=== PATIENT | female | born 1955 | race Two or more races ===

== ENCOUNTER 2020-08-02 18:19 | Emergency (ER) | payer SELFPAY ==
[~2020-08-02] VITALS: Ht 160 cm; Wt 86.2 kg
[2020-08-02 19:37] LABS: Basophils # (auto) 0.1 10 ^3/uL (0-0.2); Basophils % (auto) 1.3 % (0.0-2.0); Eosinophils # (auto) 0.2 10 ^3/uL (0-0.8); Eosinophils % (auto) 2.5 % (0.0-7.0); Hematocrit 39.7 % (36.0-46.0); Hemoglobin 13.1 g/dL (12.2-16.2); Mean Corpuscular Hemoglobin 29.2 pg (28.0-32.0); Mean Corpuscular Volume 88.3 fL (80.0-100.0); Monocytes # (auto) 0.5 10 ^3/uL (0-1.3); Monocytes % (auto) 6.5 % (0.0-12.0); Neutrophils # (auto) 5.1 10 ^3/uL (1.6-8.6); Neutrophils % (auto) 64.7 % (37.0-80.0); Platelet Count (auto) 226 10^3/uL (140-450); Red Cell Distribution Width 15.7 % (11.8-14.3); White Blood Cell 7.9 10^3/uL (4.4-10.8)
[2020-08-02 20:11] LABS: Alanine Aminotransferase 29 U/L (13-56); Albumin 3.2 g/dL (3.4-5.0); Anion Gap 9 (5-15); Aspartate Aminotransferase 11 U/L (15-37); Blood Urea Nitrogen 20 mg/dL (7-18); Calcium 9.1 mg/dL (8.5-10.1); Carbon Dioxide 25 mmol/L (21-32); Chloride 97 mmol/L (98-107); GFR African American 81 mL/min; GFR Non-African American 67 mL/min; Sodium 131 mmol/L (136-145)
[2020-08-02 20:14] LABS: Alkaline Phosphatase 128 U/L (45-117); Bilirubin, Total 0.4 mg/dL (0.2-1.0); Total Protein 7.1 g/dL (6.4-8.2)
[2020-08-02 20:20] LABS: Glucose 486 mg/dL (74-106)
[2020-08-02] MEDS ORDERED: InsuLIN REG 1unit/0.01ml Soln (100units/ml) IV ONE (21:30)
[2020-08-02] MEDS ORDERED: SODIUM CHLORIDE 0.9% 1,000 ML IV ONE (21:30)
[2020-08-02] MEDS ORDERED: KETOROLAC TROMETH 30 MG/ML 1ML VIAL IV ONE (23:00)
[2020-08-02] MEDS ORDERED: VANCOMYCIN 1GM/250ML 250 ML IV ONE (23:15)
[2020-08-03 00:26] LABS: BUN/Creatinine Ratio 25.4; Calcium 8.7 mg/dL (8.5-10.1); Potassium 3.5 mmol/L (3.5-5.1)
[2020-08-03 00:56] VITALS: BP 141/66
== END 2020-08-03 00:47 | disposition home or self-care (01) ==
LOC: ER 18:19
DX: L03.116 Cellulitis of left lower limb (principal); I10 Essential (primary) hypertension; E11.9 Type 2 diabetes mellitus without complications; E78.5 Hyperlipidemia, unspecified
CPT/HCPCS: 36415; 73630; 80048; 80053; 82962; 83605; 83735; 83880; 84550; 85025; 85652; 86141; 87040; 93971; 96361; 96365; 96375; 99285; J1885; J3370

== ENCOUNTER → 2023-01-01 | Outpatient (CLI) | payer MEDICARE, MEDICAID ==
[2023-01-01 11:04] LABS: Calcium 9.2 mg/dL (8.5-10.1); Potassium 4.6 mmol/L (3.5-5.1)
[2023-01-01 11:08] LABS: Bilirubin, Total 0.7 mg/dL (0.2-1.0); Total Protein 7.3 g/dL (6.4-8.2)
[2023-01-01 11:10] LABS: Free T4 (Free Thyroxine) 0.92 ng/dL (0.89-1.76); T3 Total 0.75 ng/mL (0.60-1.81)
[2023-01-01 11:11] LABS: Free T3 2.41 pg/mL (2.3-4.2)
== END | disposition home or self-care (01) ==
LOC: LAB 09:32
PROVIDERS: ATTEND Family Medicine
DX: Z12.11 Encounter for screening for malignant neoplasm of colon (principal); I10 Essential (primary) hypertension; E78.2 Mixed hyperlipidemia; E11.65 Type 2 diabetes mellitus with hyperglycemia
CPT/HCPCS: 36415; 80053; 80061; 84439; 84443; 84480; 84481

== ENCOUNTER 2023-01-04 12:08 | Emergency (ER) | payer OTHER, MEDICAID ==
[~2023-01-04] VITALS: Ht 160 cm; Wt 97.1 kg
[2023-01-04] MEDS ORDERED: KETOROLAC TROMETH 60MG/2ML VIAL IM ONE (14:00)
[2023-01-04] MEDS ORDERED: cloNIDine HCL 0.1 MG TAB PO ONE (14:00)
[2023-01-04 15:06] VITALS: BP 133/75
[2023-01-04] MEDS ORDERED: HYDROcodone-ACET 10/325MG TAB PO ONE (15:15)
[2023-01-04] MEDS ORDERED: HYDR1TAB97 PO (15:56)
== END 2023-01-04 16:04 | disposition home or self-care (01) ==
LOC: ER 12:08
DX: S42.032A Displaced fracture of lateral end of left clavicle, initial encounter for closed fracture (principal); E11.9 Type 2 diabetes mellitus without complications; I10 Essential (primary) hypertension; E78.5 Hyperlipidemia, unspecified; W18.2XXA Fall in (into) shower or empty bathtub, initial encounter; Y93.89 Activity, other specified; Y92.89 Other specified places as the place of occurrence of the external cause; Y99.8 Other external cause status
CPT/HCPCS: 73000; 96372; 99283; J1885

== ENCOUNTER → 2023-06-14 | Outpatient (CLI) | payer OTHER, MEDICAID ==
[~2023-06-14] MED LIST: HYDR1TAB97 PO
[2023-06-14 13:43] LABS: Basophils # (auto) 0.1 10 ^3/uL (0-0.2); Basophils % (auto) 0.8 % (0.0-2.0); Eosinophils # (auto) 0.1 10 ^3/uL (0-0.8); Eosinophils % (auto) 1.3 % (0.0-7.0); Hematocrit 44.2 % (36.0-46.0); Hemoglobin 14.5 g/dL (12.2-16.2); Lymphocytes # (auto) 2.1 10 ^3/uL (0.4-5.4); Lymphocytes % (auto) 23.2 % (10.0-50.0); Mean Corpuscular Hemoglobin 28.6 pg (28.0-32.0); Mean Corpuscular Hgb Conc. 32.8 g/dL (32.0-36.0); Mean Corpuscular Volume 87.3 fL (80.0-100.0); Monocytes # (auto) 0.4 10 ^3/uL (0-1.3); Monocytes % (auto) 4.6 % (0.0-12.0); Neutrophils # (auto) 6.4 10 ^3/uL (1.6-8.6); Neutrophils % (auto) 70.1 % (37.0-80.0); Red Blood Cells 5.06 10^6/uL (4.0-5.20); Red Cell Distribution Width 14.8 % (11.8-14.3); White Blood Cell 9.1 10^3/uL (4.4-10.8)
[2023-06-14 14:14] LABS: Alanine Aminotransferase 23 U/L (7-40); Albumin 4.4 g/dL (3.2-4.8); Alkaline Phosphatase 104 U/L (46-116); Anion Gap 5 (5-15); Aspartate Aminotransferase 12 U/L (13-40); BUN/Creatinine Ratio 9.3 (10.0-20.0); Bilirubin, Total 0.9 mg/dL (0.2-1.0); Blood Urea Nitrogen 9 mg/dL (9-23); Carbon Dioxide 29 mmol/L (20-30); Chloride 103 mmol/L (98-107); Cholesterol 138 mg/dL (< 200); Glucose 285 mg/dL (74-106); HDL Cholesterol 45 mg/dL (40-59); LDL Cholesterol 82 mg/dL (< 100); Potassium 4.7 mmol/L (3.5-5.1); Sodium 137 mmol/L (136-145); Total Protein 6.9 g/dL (5.7-8.2); Triglycerides 105 mg/dL (< 150)
== END | disposition home or self-care (01) ==
LOC: LAB 13:29
PROVIDERS: ATTEND Family Medicine
DX: E11.42 Type 2 diabetes mellitus with diabetic polyneuropathy (principal); E11.65 Type 2 diabetes mellitus with hyperglycemia; E11.319 Type 2 diabetes mellitus with unspecified diabetic retinopathy without macular edema; E78.2 Mixed hyperlipidemia; M79.2 Neuralgia and neuritis, unspecified
CPT/HCPCS: 36415; 80053; 80061; 83036; 85025

== ENCOUNTER → 2023-10-15 | Outpatient (CLI) | payer OTHER, MEDICAID | END | disposition home or self-care (01) | LOC: LAB 10:39 | PROVIDERS: ATTEND Family Medicine | DX: E11.65 Type 2 diabetes mellitus with hyperglycemia (principal) | CPT/HCPCS: 36415; 83036 ==

== ENCOUNTER → 2023-12-02 | Outpatient (CLI) | payer OTHER, MEDICAID ==
[2023-12-02 12:13] LABS: Anion Gap 3 (5-15); Carbon Dioxide 31 mmol/L (20-30); Chloride 107 mmol/L (98-107); Potassium 4.3 mmol/L (3.5-5.1); Sodium 141 mmol/L (136-145)
[2023-12-02 12:14] LABS: Calcium 9.9 mg/dL (8.5-10.1)
[2023-12-02 12:19] LABS: BUN/Creatinine Ratio 23.5 (10.0-20.0); Blood Urea Nitrogen 20 mg/dL (9-23)
[2023-12-02 13:14] LABS: Glucose 36 mg/dL (74-106)
== END | disposition home or self-care (01) ==
LOC: LAB 10:35
PROVIDERS: ATTEND Family Medicine
DX: E11.65 Type 2 diabetes mellitus with hyperglycemia (principal); I10 Essential (primary) hypertension; M79.2 Neuralgia and neuritis, unspecified; E06.3 Autoimmune thyroiditis
CPT/HCPCS: 36415; 80048; 83036

== ENCOUNTER → 2024-01-17 | Outpatient (CLI) | payer OTHER, MEDICAID | END | disposition home or self-care (01) | LOC: LAB 11:47 | PROVIDERS: ATTEND Family Medicine | DX: E06.3 Autoimmune thyroiditis (principal); E11.319 Type 2 diabetes mellitus with unspecified diabetic retinopathy without macular edema; F51.01 Primary insomnia; M79.2 Neuralgia and neuritis, unspecified | CPT/HCPCS: 36415; 82565; 82570 ==

== ENCOUNTER → 2024-02-24 | Outpatient (CLI) | payer OTHER, MEDICAID ==
[2024-02-24 12:10] LABS: Chloride 105 mmol/L (98-107); Potassium 5.1 mmol/L (3.5-5.1); Sodium 138 mmol/L (136-145)
[2024-02-24 12:11] LABS: Anion Gap 3 (5-15); Carbon Dioxide 30 mmol/L (20-30)
[2024-02-24 12:12] LABS: Blood Urea Nitrogen 17 mg/dL (9-23)
[2024-02-24 12:14] LABS: Creatinine, Urine 121.81 mg/dL (30.0-125.0)
[2024-02-24 12:16] LABS: BUN/Creatinine Ratio 16.8 (10.0-20.0); Glucose 211 mg/dL (74-106)
== END | disposition home or self-care (01) ==
LOC: LAB 10:55
PROVIDERS: ATTEND Family Medicine
DX: E11.9 Type 2 diabetes mellitus without complications (principal)
CPT/HCPCS: 36415; 80048; 82043; 82570

== ENCOUNTER → 2024-03-22 | Outpatient (CLI) | payer OTHER, MEDICAID ==
[2024-03-22 14:13] LABS: Anion Gap 4 (5-15); Carbon Dioxide 30 mmol/L (20-30); Chloride 105 mmol/L (98-107); Potassium 4.7 mmol/L (3.5-5.1); Sodium 139 mmol/L (136-145)
[2024-03-22 14:15] LABS: Calcium 9.6 mg/dL (8.7-10.4)
[2024-03-22 14:19] LABS: Glucose 221 mg/dL (74-106)
[2024-03-22 14:20] LABS: BUN/Creatinine Ratio 19.5 (10.0-20.0); Blood Urea Nitrogen 23 mg/dL (9-23); Creatinine, Urine 83.08 mg/dL (30.0-125.0)
== END | disposition home or self-care (01) ==
LOC: LAB 13:01
PROVIDERS: ATTEND Family Medicine
DX: E11.42 Type 2 diabetes mellitus with diabetic polyneuropathy (principal); E11.65 Type 2 diabetes mellitus with hyperglycemia
CPT/HCPCS: 36415; 80048; 82043; 82570; 83036

== ENCOUNTER → 2024-04-14 | Outpatient (CLI) | payer OTHER, MEDICAID ==
[~2024-04-14] VITALS: Ht 160 cm; Wt 90.7 kg
[~2024-04-14] MED LIST changes: +ADENOSINE 76 MG in GIVE UN-DILUTED 0 ML IV ONE
== END | disposition home or self-care (01) ==
LOC: XYW 09:20
PROVIDERS: ATTEND Student in an Organized Health Care Education/Training Program
DX: R94.31 Abnormal electrocardiogram [ECG] [EKG] (principal); I10 Essential (primary) hypertension; R07.9 Chest pain, unspecified; E11.65 Type 2 diabetes mellitus with hyperglycemia; E78.5 Hyperlipidemia, unspecified; Z79.4 Long term (current) use of insulin
CPT/HCPCS: 78452; 93017; A9500; J0153

== ENCOUNTER → 2024-07-03 | Outpatient (CLI) | payer OTHER, MEDICAID ==
[~2024-07-03] MED LIST changes: -ADENOSINE 76 MG in GIVE UN-DILUTED 0 ML IV ONE
== END | disposition home or self-care (01) ==
LOC: LAB 10:42
PROVIDERS: ATTEND Family Medicine
DX: E11.65 Type 2 diabetes mellitus with hyperglycemia (principal); E11.42 Type 2 diabetes mellitus with diabetic polyneuropathy
CPT/HCPCS: 36415; 83036

== ENCOUNTER → 2024-09-21 | Outpatient (CLI) | payer OTHER, MEDICAID, MEDICARE | END | disposition home or self-care (01) | LOC: LAB 12:00 | PROVIDERS: ATTEND Dermatology | DX: L72.0 Epidermal cyst (principal) ==

== ENCOUNTER → 2024-09-26 | Outpatient (CLI) | payer OTHER, MEDICAID ==
[2024-09-26 11:41] LABS: Potassium 4.2 mmol/L (3.5-5.1)
[2024-09-26 11:43] LABS: Calcium 10.2 mg/dL (8.7-10.4)
[2024-09-26 11:48] LABS: BUN/Creatinine Ratio 19.2 (10.0-20.0)
[2024-09-26 11:49] LABS: Albumin 4.6 g/dL (3.2-4.8)
[2024-09-26 11:50] LABS: Phosphorus 3.5 mg/dL (2.4-5.1)
[2024-09-26 12:01] LABS: Erythrocyte Sedimentation Rate 42 mm/hr (0-20)
[2024-09-26 12:17] LABS: Uric Acid 5.5 mg/dL (3.1-7.8)
== END | disposition home or self-care (01) ==
LOC: LAB 10:59
PROVIDERS: ATTEND Family Medicine
DX: I10 Essential (primary) hypertension (principal); E11.65 Type 2 diabetes mellitus with hyperglycemia; E78.2 Mixed hyperlipidemia
CPT/HCPCS: 36415; 80069; 83036; 84550; 85652; 86038

== ENCOUNTER 2025-01-02 10:57 | Outpatient (CLI) | payer OTHER, MEDICAID ==
[2025-01-02 11:20] LABS: Hematocrit 37.7 % (36.0-46.0); Hemoglobin 12.6 g/dL (12.2-16.2); Mean Corpuscular Hemoglobin 29.9 pg (28.0-32.0); Mean Corpuscular Volume 89.1 fL (80.0-100.0); Nucleated Red Blood Cells % 0.1 %
[2025-01-02 11:44] LABS: Chloride 104.0 mmol/L (98-107); Potassium 4.5 mmol/L (3.5-5.1); Sodium 140.0 mmol/L (136-145)
[2025-01-02 11:45] LABS: Anion Gap 6.0 (5-15); Calcium 9.1 mg/dL (8.7-10.4); Carbon Dioxide 30.0 mmol/L (20-31)
[2025-01-02 11:49] LABS: Uric Acid 6.0 mg/dL (3.1-7.8)
[2025-01-02 11:50] LABS: BUN/Creatinine Ratio 17.4 (10.0-20.0); Blood Urea Nitrogen 20.0 mg/dL (9-23)
[2025-01-02 11:51] LABS: Glucose 119.0 mg/dL (74-106)
[2025-01-02 11:52] LABS: Albumin 4.1 g/dL (3.2-4.8)
[2025-01-02 12:11] LABS: Urine Protein, UAD TRACE (Negative)
[2025-01-02 12:16] LABS: Protein, Urine 26.3 mg/dL (1-14)
[2025-01-03 08:07] LABS: Immunoglobulin A 265 mg/dL (87-352); Immunoglobulin G, Serum 883 mg/dL (586-1602); Immunoglobulin M 60 mg/dL (26-217)
== END 2025-01-02 17:48 | disposition home or self-care (01) ==
LOC: LAB 10:57
PROVIDERS: ATTEND Internal Medicine
DX: E11.22 Type 2 diabetes mellitus with diabetic chronic kidney disease (principal); E11.21 Type 2 diabetes mellitus with diabetic nephropathy; N18.30 Chronic kidney disease, stage 3 unspecified; E21.3 Hyperparathyroidism, unspecified; E55.9 Vitamin D deficiency, unspecified; N39.0 Urinary tract infection, site not specified; D63.1 Anemia in chronic kidney disease; R80.9 Proteinuria, unspecified; M10.9 Gout, unspecified
CPT/HCPCS: 36415; 80069; 81001; 82570; 82784; 83970; 84155; 84156; 84165; 84550; 85025; 86334

== ENCOUNTER → 2025-03-07 | Outpatient (CLI) | payer OTHER, MEDICAID ==
[2025-03-07 12:19] LABS: Hematocrit 41.6 % (36.0-46.0); Hemoglobin 13.5 g/dL (12.2-16.2); Mean Corpuscular Hemoglobin 28.7 pg (28.0-32.0); Mean Corpuscular Volume 88.6 fL (80.0-100.0); Nucleated Red Blood Cells % 0.0 %
[2025-03-07 13:33] LABS: Alanine Aminotransferase 16 U/L (7-40); Albumin 4.1 g/dL (3.2-4.8); Alkaline Phosphatase 113 U/L (46-116); Anion Gap 7 (5-15); BUN/Creatinine Ratio 19.5 (10.0-20.0); Bilirubin, Total 0.6 mg/dL (0.2-1.0); Calcium 9.6 mg/dL (8.7-10.4); Carbon Dioxide 29 mmol/L (20-31); Chloride 106 mmol/L (98-107); Cholesterol 119 mg/dL (< 200); HDL Cholesterol 41 mg/dL (40-59); Potassium 5.0 mmol/L (3.5-5.1); Sodium 142 mmol/L (136-145); Total Protein 6.8 g/dL (5.7-8.2); Triglycerides 70 mg/dL (< 150)
[2025-03-07 13:35] LABS: Blood Urea Nitrogen 23 mg/dL (9-23); Glucose 157 mg/dL (74-106)
== END | disposition home or self-care (01) ==
LOC: LAB 11:45
PROVIDERS: ATTEND Family Medicine
DX: E11.42 Type 2 diabetes mellitus with diabetic polyneuropathy (principal); E11.65 Type 2 diabetes mellitus with hyperglycemia; E78.2 Mixed hyperlipidemia; M79.2 Neuralgia and neuritis, unspecified; Z79.4 Long term (current) use of insulin
CPT/HCPCS: 36415; 80053; 80061; 80069; 83036; 84443; 85025

== ENCOUNTER 2025-04-02 14:20 | Emergency (ER) | payer OTHER, MEDICAID ==
[~2025-04-02] VITALS: Ht 160 cm; Wt 94.5 kg
[2025-04-02 14:21] VITALS: BP 123/65; PULSE 84; RESP 20; TEMP 97.7; O2SAT 95
--- NOTE | 2025-04-02 15:24 | ED.PDOC ---
Back pain HPI HPI Comments 69-year-old female who presents to the ED with a chief complaint of neck pain. Patient states she has been having diffusely located headache with the pain radiating down to her neck for the past one week. Patient states that she has been having exacerbation of pain when attempting to turn her head. Patient otherwise denies any associated recent trauma or fall injury. Patient otherwise denies any other symptoms. Patient otherwise has noted stable vitals in the ED. Chief Complaint: Neck Pain Time Seen by MD: 15:20 Primary Care Provider: DENIES Reviewed Notes: Medications, Allergies Allergies: Coded Allergies: NO KNOWN ALLERGIES (Unverified , 04/14/24) Home Meds Active Scripts Prednisone (Prednisone) 20 Mg Tab, 40 MG PO DAILY for 5 Days, #10 TAB 0 Refills Prov:SHON LORENZO NP 04/02/25 Hydrocodone-Acetaminophen (Hydrocodone Bitartrate/AC 5-325 mg) 1 Tab Tab, 1 TAB PO Q8HP PRN for 3 Days, #9 TAB 0 Refills Prov:SHON LORENZO NP 04/02/25 Hydrocodone-Acetaminophen (Hydrocodone/Acetaminophen 5-325 mg) 1 Tab Tab, 1 TAB PO TID for 5 Days, #15 TAB 0 Refills Prov:SHON LORENZO NP 01/04/23 Information Source: Patient, Relative Mode of Arrival: Ambulatory Brought in by: Daughter Past Medical History PAST MEDICAL HISTORY: DM, High Lipids, HTN Social History Smoker: Non-Smoker Alcohol: Occasionally Drugs: Denies Drug Use Constitutional: denies: chills, diaphoresis, fatigue, fever, malaise, sweats, weakness, others EENTM: denies: blurred vision, double vision, ear bleeding, ear discharge, ear drainage, ear pain, ear ringing, eye pain, eye redness, hearing loss, mouth pain, mouth swelling, nasal discharge, nose bleeding, nose congestion, nose pain, photophobia, tearing, throat pain, throat swelling, voice changes, others Respiratory: denies: cough, hemoptysis, orthopnea, SOB at rest, shortness of breath, SOB with excertion, stridor, wheezing, others Cardiovascular: denies: chest pain, dizzy spells, diaphoresis, Dyspnea on exertion, edema, irregular heart beat, left arm pain, lightheadedness, palpitations, PND, syncope, others Gastrointestinal: denies: abdomen distended, abdominal pain, blood streaked bowels, constipated, diarrhea, dysphagia, difficulty swallowing, hematemesis, melena, nausea, poor appetite, poor fluid intake, rectal bleeding, rectal pain, vomiting, others Genitourinary: denies: abnormal vagina bleeding, burning, dyspareunia, dysuria, flank pain, frequency, hematuria, incontinence, pain, , vagina discharge, urgency, others Neurological: reports: headache; denies: dizziness, fainting, left sided numbness, left sided weakness, numbness, paresthesia, pre-existing deficit, right sided numbness, right sided weakness, seizure, speech problems, tingling, tremors, weakness, others Musculoskeletal: reports: neck pain; denies: back pain, gout, joint pain, joint swelling, muscle pain, muscle stiffness, others Integumetry: denies: bruises, change in color, change in hair/nails, dryness, laceration, lesions, lumps, rash, wounds, others Allergic/Immunocompromised: denies: Difficulty Healing, Frequent Infections, Hives, Itching, others Hematologic/Lymphatic: denies: anemia, blood clots, easy bleeding, easy bruising, swollen glands, others Endocrine: denies: excessive hunger, excessive sweating, excessive thirst, excessive urination, flushing, intolerance to cold, intolerance to heat, unexplained weight gain, unexplained weight loss, others Psychiatric: denies: anxiety, bipolar disorder, depression, hopeless, panic disorder, schizophrenia, sleepless, suicidal, others All Other Systems: Reviewed and Negative Physical Exam General Appearance: No Apparent Distress, Normal HEENT: Normal ENT Inspection, Pharynx Normal, TMs Normal Neck: Full Range of Motion, Non-Tender, Normal, Normal Inspection Respiratory: Chest Non-Tender, Lungs Clear, No Accessory Muscle Use, No Respiratory Distress, Normal Breath Sounds Cardiovascular: No Edema, No JVD, No Murmur, No Gallop, Normal Peripheral Pulses, Regular Rate/Rhythm Breast Exam: Deferred Gastrointestinal: No Organomegaly, Non Tender, No Pulsatile Mass, Normal Bowel Sounds, Soft Genitalia: Deferred Pelvic: Deferred Rectal: Deferred Extremities: No calf tenderness, Normal capillary refill, Normal inspection, Normal range of motion, Non-tender, No pedal edema Musculoskeletal : Apperance: Normal Neurologic: Alert, media analytics manager II-XII nml as Tested, No Motor Deficits, Normal Affect, Normal Mood, No Sensory Deficits Cerebellar Function: Normal Reflexes: Normal Skin: Dry, Normal Color, Warm Lymphatic: No Adenopathy Was a procedure done? Was a procedure done?: No Back Pain Differential Dx Differential Diagnosis: DJD, Musculoskeletal Pain, Strain X-Ray, Labs, Meds, VS Vital Signs Date Time Temp Pulse Resp B/P (MAP) Pulse Ox O2 Delivery O2 Flow Rate FiO2 04/02/25 14:21 97.7 84 20 123/65 95 97.7 Lab Test 04/02/25 15:28 Range/Units White Blood Count 9.1 4.4-10.8 10^3/uL Red Blood Count 4.44 4.0-5.20 10^6/uL Hemoglobin 13.0 12.2-16.2 g/dL Hematocrit 39.3 36.0-46.0 % Mean Corpuscular Volume 88.5 80.0-100.0 fL Mean Corpuscular Hemoglobin 29.2 28.0-32.0 pg Mean Corpuscular Hemoglobin Concent 33.0 32.0-36.0 g/dL Red Cell Distribution Width 14.3 11.8-14.3 % Platelet Count 258 140-450 10^3/uL Mean Platelet Volume 10.1 6.9-10.8 fL Neutrophils (%) (Auto) 64.1 37.0-80.0 % Lymphocytes (%) (Auto) 27.2 10.0-50.0 % Monocytes (%) (Auto) 6.5 0.0-12.0 % Eosinophils (%) (Auto) 1.6 0.0-7.0 % Basophils (%) (Auto) 0.6 0.0-2.0 % Neutrophils # (Auto) 5.8 1.6-8.6 10 ^3/uL Lymphocytes # (Auto) 2.5 0.4-5.4 10 ^3/uL Monocytes # (Auto) 0.6 0-1.3 10 ^3/uL Eosinophils # (Auto) 0.1 0-0.8 10 ^3/uL Basophils # (Auto) 0.1 0-0.2 10 ^3/uL Nucleated Red Blood Cells 0.2 % Sodium Level 137 136-145 mmol/L Potassium Level 4.8 3.5-5.1 mmol/L Chloride Level 100 98-107 mmol/L Carbon Dioxide Level 27 20-31 mmol/L Anion Gap 10 5-15 Blood Urea Nitrogen 16 9-23 mg/dL Creatinine 0.92 0.550-1.02 mg/dL Glomerular Filtration Rate Calc 68 >90 mL/min BUN/Creatinine Ratio 17.4 10.0-20.0 Serum Glucose 276 H 74-106 mg/dL Calcium Level 9.1 8.7-10.4 mg/dL Current Medications Medications (Trade) Dose Ordered Sig/Orin Route Start Time Stop Time Status Last Admin Acetaminophen/ Hydrocodone Bitart (Alpine 5/325MG Tab) 1 tab ONCE ONCE PO 04/02/25 16:30 04/02/25 16:31 DC 04/02/25 16:38 [place] [id number] Ph: [phone] DIAGNOSTIC IMAGING Diagnostic Imaging Report : [id number] Signed PATIENT: RAMÓN DE LEONACCT: [id number] UNIT: [id number] : 1955 LOC: ER ROOM / BED: / AGE / SEX: 69 / F ADM STATUS: REG ER SERVICE [id number] ORDERING PHYSICIAN: SHON LORENZO NP PROCEDURE(s): CS2 - CERVICAL WITHOUT CONTRAST REASON: Pain ORDER NUMBER(s): [id number], ACCESSION NUMBER(s): [id number] EXAM: CT CERVICAL WITHOUT CONTRAST INDICATION: Pain EXAM DATE: 04/02/2025 03:08 PM COMPARISON: None TECHNIQUE: Noncontrast axial CT images of the cervical spine were performed. Sagittal and coronal reformatted images were obtained. Radiation optimization: All CT scans at this facility use at least one of these dose optimization techniques: automated exposure control mA and/or kV adjustment per patient size (includes targeted exams where dose is matched to clinical indication) or iterative reconstruction. Radiation Dose Information: CT Dose: CTDI volume is 28.88 mGy. Dose-length product is 800.85 mGy*cm FINDINGS: No fracture or listhesis of the cervical spine. The cervical spinal canal is congenitally narrow. There is advanced cervical degenerative disc disease and mild facet arthropathy. There is moderate spinal canal stenosis at C3-C4 and C4- C5 and C6-C7; [id number] spinal canal stenosis at C5-C6. There is significant neural foraminal stenosis at C3-C4 on the left, C4-C5 on the right, C5-C6 on the left, C6-C7 bilaterally. The sella is empty. There are atherosclerotic calcifications of the left carotid bulb. There is asymmetric prominence of the left lingual tonsil (image 40, series 5). IMPRESSION: 1. No fracture of the cervical spine. 2. 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 Recommend follow-up noncontrast MRI of the cervical spine for better characterization on a nonemergent basis, as there is likely mass effect on the cervical spinal cord at multiple levels. 3. Multilevel significant neural foraminal stenosis as detailed above. These would also be better characterized with noncontrast MRI. 4. Empty sella incidentally noted. 5. Left carotid atherosclerosis. 6. Asymmetric prominence of the left lingual tonsil may be inflammatory or neoplastic in nature. Recommend follow-up otolaryngology consultation for direct visualization. Follow-up contrasted CT scan of the soft tissue neck may be warranted on an outpatient nonemergent basis for better characterization. ATED BY: RJ MOSS MD DICTATED DATE/TIME: 04/02/251549 SIGNED BY: RJ MOSS MD SIGNED DATE/TIME: 04/02/251549 CC: [place] [id number] Ph: [phone] DIAGNOSTIC IMAGING Diagnostic Imaging Report : [id number] Signed PATIENT: RAMÓN DE LEONACCT: [id number] UNIT: [id number] : 1955 LOC: ER ROOM / BED: / AGE / SEX: 69 / F ADM STATUS: REG ER SERVICE 1979 ORDERING PHYSICIAN: SHON LORENZO NP PROCEDURE(s): HWOCT - HEAD WITHOUT CONTRAST REASON: Pain ORDER NUMBER(s): [id number], ACCESSION NUMBER(s): [id number] EXAM: CT HEAD WITHOUT CONTRAST HISTORY: Pain COMPARISON: None TECHNIQUE: Noncontrast axial CT images of the head were performed. Sagittal and coronal reformatted images were obtained. This CT exam was performed using 1 or more of the following dose reduction techniques: Automated exposure control, adjustment of the mA and/or kv according to patient size, or the use of iterative reconstruction techniques. Radiation Dose: CTDI volume is 58.02 mGy. Dose-length product is 1141.72 mGy*cm FINDINGS: No intracranial hemorrhage, mass, midline shift, hydrocephalus, or evidence of acute large vessel infarct. The sella is empty. There are Postoperative changes of Bilateral cataract extraction surgery. There is a small mucous retention cyst of the right maxillary sinus. The bilateral mastoid air cells and middle ear spaces are clear. No cranial fracture or scalp edema. IMPRESSION: 1. No acute intracranial process. 2. Empty sella incidentally noted. ATED BY: RJ MOSS MD DICTATED DATE/TIME: 04/02/25 154 SIGNED BY: RJ MOSS MD SIGNED DATE/TIME: 04/02/25 154 CC: X-Ray, Labs, Meds, VS Comment Patient arrives alert and oriented, ABC's intact, afebrile, vital signs stable, saturating well in room air Peripheral IV insertion+ labs were ordered. CBC was ordered to exclude anemia, blood loss, or infection. BMP was ordered to exclude electrolyte abnormalities, renal failure, dehydration, hyperglycemia Diagnostic imaging ordered by me and results interpreted by radiology : No fracture or listhesis of the cervical spine. The cervical spinal canal is congenitally narrow. There is advanced cervical degenerative disc disease and mild facet arthropathy. There is moderate spinal canal stenosis at C3-C4 and C4- C5 and C6-C7; [id number] spinal canal stenosis at C5-C6. There is significant neural foraminal stenosis at C3-C4 on the left, C4-C5 on the right, C5-C6 on the left, C6-C7 bilaterally. The sella is empty. There are atherosclerotic calcifications of the left carotid bulb. There is asymmetric prominence of the left lingual tonsil (image 40, series 5). IMPRESSION: 1. No fracture of the cervical spine. 2. 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 Recommend follow-up noncontrast MRI of the cervical spine for better characterization on a nonemergent basis, as there is likely mass effect on the cervical spinal cord at multiple levels. 3. Multilevel significant neural foraminal stenosis as detailed above. These would also be better characterized with noncontrast MRI. 4. Empty sella incidentally noted. 5. Left carotid atherosclerosis. 6. Asymmetric prominence of the left lingual tonsil may be inflammatory or neoplastic in nature. Recommend follow-up otolaryngology consultation for direct visualization. Follow-up contrasted CT scan of the soft tissue neck may be warranted on an outpatient nonemergent basis for better characterization. Patient is stable for discharge at this time. External notes reviewed. Test results and diagnostic imaging interpreted. All diagnostic findings, discharge care, education and instructions provided Follow-up with PCP in 2 to 3 days Patient verbalized understanding and agreed to treatment plan Vital signs stable, afebrile, no acute distress noted Patient ambulatory with strong steady gait Advised to return precautions for any new or worsening symptoms, return to ER immediately for re-evaluation Patient is aware that the purpose of this visit was for an acute medical emergency requiring emergent stabilization. Chronic conditions, including malignancies have not been ruled out. Patient is instructed to follow up with PCP as directed and discharge instructions for continued care and workup. If unable to arrange follow-up, patient is to return to the emergency department for reassessment. Patient (parent or legal guardian if applicable) was given verbal and written discharge instructions and acknowledges understanding. Additional MDM Review of External, Non-ED records: External records reviewed. Discussion with independent historian (EMS, family) history obtained from the patient/parents (if applicable) at bedside Chronic conditions affecting care: None Social determinants of health affecting care: None Consideration of admission (observation or admission): I considered escalation of care to admission for this patient, however given the reassuring workup, the patient is safe for outpatient management. Discussion with the Radiology: No Tests considered but not performed: Prescription medication considered but not given: Time of 1ST Reevaluation: 15:50 Reevaluation 1ST: Unchanged Patient Education/Counseling: Diagnosis, Treatment Family Education/Counseling: Diagnosis, Treatment SEPSIS Sepsis Screen Date sepsis recognized/suspect: Apr 02, 2025 Time Sepsis recognized/suspect: 1421 Recent Procedure: No On Antibiotic Therapy: No Respiratory Rate >20: No Heart Rate >90: No Temp<36 C (96.8 F) or >38.3 C: No SBP <90 or MAP <65 mmHG: No New Acute Mental Status Change: No Is the patient on CPAP, BIPAP,: No Physician Orders Head Without Contrast (04/02/25 15:05) Cervical Without Contrast (04/02/25 15:05) Vital Signs Date Time Temp Pulse Resp B/P (MAP) Pulse Ox O2 Delivery O2 Flow Rate FiO2 04/02/25 14:21 97.7 84 20 123/65 95 97.7 Laboratory Tests Test 04/02/25 15:28 White Blood Count 9.1 10^3/uL (4.4-10.8) Departure 1 Departure Time of Disposition: 16:10 Impression: Primary Impression: Headache Qualified Codes: R51.9 - Headache, unspecified Additional Impressions: Cervical spine arthritis Central stenosis of spinal canal Disposition: HOME / SELF CARE / HOMELESS Condition: Stable e-Prescriptions Prednisone (Prednisone) 20 Mg Tab 40 MG PO DAILY for 5 Days, #10 TAB 0 Refills Prov: SHON LORENZO DEVELOPMENT ASSOCIATE 04/02/25 Hydrocodone-Acetaminophen (Hydrocodone Bitartrate/AC 5-325 mg) 1 Tab Tab 1 TAB PO Q8HP PRN for 3 Days, #9 TAB 0 Refills Prov: SHON LORENZO DEVELOPMENT ASSOCIATE 04/02/25 Critical Care Note Critical Care Time?: No Stability Stability form required: No Heart Score Heart Score: Heart Score Response (Comments) Value History N/A 0 EKG N/A 0 Age N/A 0 Risk Factors N/A 0 Troponin N/A 0 Total 0 I personally scribed for SHON LORENZO NP ([email or web address]) on 04/02/25 at 15:24. Electronically submitted by Lisa Ceron ([email or web address]). I personally scribed for SHON LORENZO NP ([email or web address]) on 04/02/25 at 15:55. Electronically submitted by Lisa Ceron ([email or web address]). SHON LORENZO DEVELOPMENT ASSOCIATE Apr 02, 2025 15:24
--- NOTE | 2025-04-02 15:45 | DVH ---
EXAM: CT HEAD WITHOUT CONTRAST HISTORY: Pain COMPARISON: None TECHNIQUE: Noncontrast axial CT images of the head were performed. Sagittal and coronal reformatted i mages were obtained. This CT exam was performed using 1 or more of the following dose reduction techn iques: Automated exposure control, adjustment of the mA and/or kv according to patient size, or the u se of iterative reconstruction techniques. Radiation Dose: CTDI volume is 58.02 mGy. Dose-length product is 1141.72 mGy*cm FINDINGS: No intracranial hemorrhage, mass, midline shift, hydrocephalus, or evidence of acute large vessel inf arct. The sella is empty. There are Postoperative changes of Bilateral cataract extraction surgery. T here is a small mucous retention cyst of the right maxillary sinus. The bilateral mastoid air cells a nd middle ear spaces are clear. No cranial fracture or scalp edema. IMPRESSION: 1. No acute intracranial process. 2. Empty sella incidentally noted.
--- NOTE | 2025-04-02 15:53 | DVH ---
EXAM: CT CERVICAL WITHOUT CONTRAST INDICATION: Pain EXAM DATE: 04/02/2025 03:08 PM COMPARISON: None TECHNIQUE: Noncontrast axial CT images of the cervical spine were performed. Sagittal and coronal ref ormatted images were obtained. Radiation optimization: All CT scans at this facility use at least one of these dose optimization techniques: automated exposure control mA and/or kV adjustment per patie nt size (includes targeted exams where dose is matched to clinical indication) or iterative reconstr uction. Radiation Dose Information: CT Dose: CTDI volume is 28.88 mGy. Dose-length product is 800.85 mGy*cm FINDINGS: No fracture or listhesis of the cervical spine. The cervical spinal canal is congenitally narrow. The re is advanced cervical degenerative disc disease and mild facet arthropathy. There is moderate spina l canal stenosis at C3-C4 and C4-C5 and C6-C7; [id number] spinal canal stenosis at C5-C6. There is significant neural foraminal stenosis at C3-C4 on the left, C4-C5 on the right, C5-C6 on the left , C6-C7 bilaterally. The sella is empty. There are atherosclerotic calcifications of the left carotid bulb. There is asymmetric prominence of the left lingual tonsil (image 40, series 5). IMPRESSION: 1. No fracture of the cervical spine. 2. 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 Recommend follow-up noncontra st MRI of the cervical spine for better characterization on a nonemergent basis, as there is likely m ass effect on the cervical spinal cord at multiple levels. 3. Multilevel significant neural foraminal stenosis as detailed above. These would also be better ch aracterized with noncontrast MRI. 4. Empty sella incidentally noted. 5. Left carotid atherosclerosis. 6. Asymmetric prominence of the left lingual tonsil may be inflammatory or neoplastic in nature. Rec ommend follow-up otolaryngology consultation for direct visualization. Follow-up contrasted CT scan o f the soft tissue neck may be warranted on an outpatient nonemergent basis for better characterizatio n.
[2025-04-02 15:55] LABS: Hematocrit 39.3 % (36.0-46.0); Hemoglobin 13.0 g/dL (12.2-16.2); Mean Corpuscular Hemoglobin 29.2 pg (28.0-32.0); Mean Corpuscular Volume 88.5 fL (80.0-100.0); Nucleated Red Blood Cells % 0.2 %
[2025-04-02 16:00] LABS: Chloride 100 mmol/L (98-107); Potassium 4.8 mmol/L (3.5-5.1); Sodium 137 mmol/L (136-145)
[2025-04-02 16:01] LABS: Anion Gap 10 (5-15); Carbon Dioxide 27 mmol/L (20-31)
[2025-04-02 16:02] LABS: Calcium 9.1 mg/dL (8.7-10.4)
[2025-04-02 16:07] LABS: BUN/Creatinine Ratio 17.4 (10.0-20.0); Blood Urea Nitrogen 16 mg/dL (9-23)
[2025-04-02 16:08] LABS: Glucose 276 mg/dL (74-106)
[2025-04-02] MEDS ORDERED: HYDR-4902 PO (16:15)
[2025-04-02] MEDS ORDERED: PRED20TA2 PO (16:15)
[2025-04-02] MEDS: HYDROcodone-ACET 5/325MG TAB PO ONE (16:38)
== END 2025-04-02 16:39 | disposition home or self-care (01) ==
LOC: ER 14:22
DX: M48.02 Spinal stenosis, cervical region (principal); M47.892 Other spondylosis, cervical region; R51.9 Headache, unspecified; F10.90 Alcohol use, unspecified, uncomplicated; I10 Essential (primary) hypertension; E11.9 Type 2 diabetes mellitus without complications; E78.5 Hyperlipidemia, unspecified; Z79.899 Other long term (current) drug therapy; Z79.891 Long term (current) use of opiate analgesic; Z79.52 Long term (current) use of systemic steroids; Y90.9 Presence of alcohol in blood, level not specified
CPT/HCPCS: 36415; 70450; 72125; 80048; 85025

== ENCOUNTER 2025-04-26 12:36 | Outpatient (CLI) | payer OTHER, MEDICAID ==
[~2025-04-26 12:36] MED LIST changes: +HYDR-4902 PO; +PRED20TA2 PO
[2025-04-26 13:06] LABS: Chloride 100.0 mmol/L (98-107); Sodium 136.0 mmol/L (136-145)
[2025-04-26 13:07] LABS: Anion Gap 5.0 (5-15); Calcium 9.2 mg/dL (8.7-10.4)
[2025-04-26 13:12] LABS: BUN/Creatinine Ratio 14.8 (10.0-20.0); Blood Urea Nitrogen 21.0 mg/dL (9-23)
[2025-04-26 13:13] LABS: Carbon Dioxide 31.0 mmol/L (20-31)
[2025-04-26 13:14] LABS: Albumin 4.0 g/dL (3.2-4.8)
[2025-04-26 14:43] LABS: Glucose 460.0 mg/dL (74-106); Potassium 5.7 mmol/L (3.5-5.1)
== END 2025-04-26 17:00 | disposition home or self-care (01) ==
LOC: LAB 12:36
PROVIDERS: ATTEND Family Medicine
DX: I12.9 Hypertensive chronic kidney disease with stage 1 through stage 4 chronic kidney disease, or unspecified chronic kidney disease (principal); E11.22 Type 2 diabetes mellitus with diabetic chronic kidney disease; N18.31 Chronic kidney disease, stage 3a; E11.42 Type 2 diabetes mellitus with diabetic polyneuropathy; E78.2 Mixed hyperlipidemia
CPT/HCPCS: 36415; 80069; 83036

== ENCOUNTER 2025-05-16 15:16 | Inpatient (IN) | payer OTHER, MEDICAID ==
[~2025-05-16] VITALS: Ht 160 cm; Wt 91.4 kg
[2025-05-16 17:32] LABS: Chloride 101 mmol/L (98-107); Potassium 4.4 mmol/L (3.5-5.1); Sodium 138 mmol/L (136-145)
[2025-05-16 17:33] LABS: Anion Gap 12 (5-15); Carbon Dioxide 25 mmol/L (20-31)
[2025-05-16 17:34] LABS: Calcium 10.0 mg/dL (8.7-10.4)
[2025-05-16 17:38] LABS: BUN/Creatinine Ratio 9.2 (10.0-20.0); Blood Urea Nitrogen 11 mg/dL (9-23)
[2025-05-16 17:39] LABS: Glucose 359 mg/dL (74-106); Hematocrit 44.1 % (36.0-46.0); Hemoglobin 14.4 g/dL (12.2-16.2); Mean Corpuscular Hemoglobin 28.3 pg (28.0-32.0); Mean Corpuscular Volume 86.8 fL (80.0-100.0); Nucleated Red Blood Cells % 0.1 %
--- NOTE | 2025-05-16 17:49 | ED.PDOC ---
History of Present Illness HPI Comments 69-year-old female presents to the ER in her wheelchair being pushed by daughter and with prior medical history of neuropathy, diabetes and a chief complaint of lower extremity pain. Patient reports that she was here 1 month ago for similar symptoms and was diagnosed with a arthritis. Patient is now currently complaining of left lower extremity pain and heaviness status post being discharged from [facility] 1 month ago. Daughter notes that the patient did fall a couple of days ago and had a loss of appetite. Denies any other symptoms at this time. Chief Complaint: Lower Extremity Time Seen by MD: 17:15 Primary Care Provider: DENIES Reviewed Notes: Nurses Notes, Medications, Allergies Allergies: Coded Allergies: NO KNOWN ALLERGIES (Unverified , 04/14/24) Home Meds Active Scripts Prednisone (Prednisone) 20 Mg Tab, 40 MG PO DAILY for 5 Days, #10 TAB 0 Refills Prov:SHON LORENZO NP 04/02/25 Hydrocodone-Acetaminophen (Hydrocodone Bitartrate/AC 5-325 mg) 1 Tab Tab, 1 TAB PO Q8HP PRN for 3 Days, #9 TAB 0 Refills Prov:SHON LORENZO NP 04/02/25 Hydrocodone-Acetaminophen (Hydrocodone/Acetaminophen 5-325 mg) 1 Tab Tab, 1 TAB PO TID for 5 Days, #15 TAB 0 Refills Prov:SHON LORENZO NP 01/04/23 Information Source: Patient Mode of Arrival: Wheelchair Severity: Moderate Timing: Weeks Duration: Since onset Prehospital treatment: None Past Medical History PAST MEDICAL HISTORY: DM Past Medical History (Other): Neuropathy Surgical History: Denies all surgeries GAS USAGE METER CLERK History: No Pertinent GAS USAGE METER CLERK History Family History Family History: Reviewed,noncontributory to illness, Unknown Social History Smoker: Non-Smoker Alcohol: Denies ETOH Use Drugs: Denies Drug Use Lives In: Home Constitutional: denies: chills, diaphoresis, fatigue, fever, malaise, sweats, weakness, others EENTM: denies: blurred vision, double vision, ear bleeding, ear discharge, ear drainage, ear pain, ear ringing, eye pain, eye redness, hearing loss, mouth pain, mouth swelling, nasal discharge, nose bleeding, nose congestion, nose pain, photophobia, tearing, throat pain, throat swelling, voice changes, others Respiratory: denies: cough, hemoptysis, orthopnea, SOB at rest, shortness of breath, SOB with excertion, stridor, wheezing, others Cardiovascular: denies: chest pain, dizzy spells, diaphoresis, Dyspnea on exertion, edema, irregular heart beat, left arm pain, lightheadedness, pa lpitations, PND, syncope, others Gastrointestinal: denies: abdomen distended, abdominal pain, blood streaked bowels, constipated, diarrhea, dysphagia, difficulty swallowing, hematemesis, melena, nausea, poor appetite, poor fluid intake, rectal bleeding, rectal pain, vomiting, others Genitourinary: denies: abnormal vagina bleeding, burning, dyspareunia, dysuria, flank pain, frequency, hematuria, incontinence, pain, , vagina discharge, urgency, others Neurological: denies: dizziness, fainting, headache, left sided numbness, left sided weakness, numbness, paresthesia, pre-existing deficit, right sided numbness, right sided weakness, seizure, speech problems, tingling, tremors, weakness, others Musculoskeletal: denies: back pain, gout, joint pain, joint swelling, muscle pain, muscle stiffness, neck pain, others Integumetry: denies: bruises, change in color, change in hair/nails, dryness, laceration, lesions, lumps, rash, wounds, others Allergic/Immunocompromised: denies: Difficulty Healing, Frequent Infections, Hives, Itching, others Hematologic/Lymphatic: denies: anemia, blood clots, easy bleeding, easy bruising, swollen glands, others Endocrine: denies: excessive hunger, excessive sweating, excessive thirst, excessive urination, flushing, intolerance to cold, intolerance to heat, unexplained weight gain, unexplained weight loss, others Psychiatric: denies: anxiety, bipolar disorder, depression, hopeless, panic disorder, schizophrenia, sleepless, suicidal, others All Other Systems: Reviewed and Negative Physical Exam General Appearance: No Apparent Distress, Normal HEENT: Normal ENT Inspection, Pharynx Normal, TMs Normal Neck: Full Range of Motion, Non-Tender, Normal, Normal Inspection Respiratory: Chest Non-Tender, Lungs Clear, No Accessory Muscle Use, No Respiratory Distress, Normal Breath Sounds Cardiovascular: No Edema, No JVD, No Murmur, No Gallop, Normal Peripheral Pulses, Regular Rate/Rhythm Breast Exam: Deferred Gastrointestinal: No Organomegaly, Non Tender, No Pulsatile Mass, Normal Bowel Sounds, Soft Genitalia: Deferred Pelvic: Deferred Rectal: Deferred Extremities: No calf tenderness, Normal capillary refill, Normal inspection, Normal range of motion, Non-tender, No pedal edema Musculoskeletal : Apperance: Normal Neurologic: Alert, aircraft electrical systems specialist II-XII nml as Tested, No Motor Deficits, Normal Affect, Normal Mood, No Sensory Deficits Cerebellar Function: Normal Reflexes: Normal Skin: Dry, Normal Color, Warm Lymphatic: No Adenopathy Was a procedure done? Was a procedure done?: No Differential Dx Considerations may include: ACS, CVA, viral syndrome, electrolyte [place], infectious etiology, TIA X-Ray, Labs, Meds, VS Vital Signs Date Time Temp Pulse Resp B/P (MAP) Pulse Ox O2 Delivery O2 Flow Rate FiO2 05/16/25 15:17 97.7 94 15 160/84 97 97.7 Lab Test 05/16/25 17:07 Range/Units White Blood Count 10.4 4.4-10.8 10^3/uL Red Blood Count 5.08 4.0-5.20 10^6/uL Hemoglobin 14.4 12.2-16.2 g/dL Hematocrit 44.1 36.0-46.0 % Mean Corpuscular Volume 86.8 80.0-100.0 fL Mean Corpuscular Hemoglobin 28.3 28.0-32.0 pg Mean Corpuscular Hemoglobin Concent 32.7 32.0-36.0 g/dL Red Cell Distribution Width 14.2 11.8-14.3 % Platelet Count 200 140-450 10^3/uL Mean Platelet Volume 11.6 H 6.9-10.8 fL Neutrophils (%) (Auto) 66.8 37.0-80.0 % Lymphocytes (%) (Auto) 24.6 10.0-50.0 % Monocytes (%) (Auto) 6.5 0.0-12.0 % Eosinophils (%) (Auto) 1.5 0.0-7.0 % Basophils (%) (Auto) 0.6 0.0-2.0 % Neutrophils # (Auto) 6.9 1.6-8.6 10 ^3/uL Lymphocytes # (Auto) 2.6 0.4-5.4 10 ^3/uL Monocytes # (Auto) 0.7 0-1.3 10 ^3/uL Eosinophils # (Auto) 0.2 0-0.8 10 ^3/uL Basophils # (Auto) 0.1 0-0.2 10 ^3/uL Nucleated Red Blood Cells 0.1 % Sodium Level 138 136-145 mmol/L Potassium Level 4.4 3.5-5.1 mmol/L Chloride Level 101 98-107 mmol/L Carbon Dioxide Level 25 20-31 mmol/L Anion Gap 12 5-15 Blood Urea Nitrogen 11 9-23 mg/dL Creatinine 1.19 H 0.550-1.02 mg/dL Glomerular Filtration Rate Calc 50 >90 mL/min BUN/Creatinine Ratio 9.2 L 10.0-20.0 Serum Glucose 359 H 74-106 mg/dL Calcium Level 10.0 8.7-10.4 mg/dL Troponin I High Sensitivity 4 </=34 ng/L Time of 1ST Reevaluation: 17:45 Reevaluation 1ST: Unchanged Patient Education/Counseling: Diagnosis, Treatment, Prognosis Family Education/Counseling: Diagnosis, Treatment, Prognosis SEPSIS Sepsis Screen Date sepsis recognized/suspect: May 16, 2025 Time Sepsis recognized/suspect: 152 Recent Procedure: No On Antibiotic Therapy: No Respiratory Rate >20: No Heart Rate >90: No Temp<36 C (96.8 F) or >38.3 C: No SBP <90 or MAP <65 mmHG: No New Acute Mental Status Change: No Is the patient on CPAP, BIPAP,: No Physician Orders Electrocardigram (05/16/25 16:48) Electrocardigram (05/16/25 17:48) Electrocardigram (05/16/25 19:48) Head Without Contrast (05/16/25 17:45) Chest Portable (05/16/25 17:45) Vital Signs Date Time Temp Pulse Resp B/P (MAP) Pulse Ox O2 Delivery O2 Flow Rate FiO2 05/16/25 15:17 97.7 94 15 160/84 97 97.7 Laboratory Tests Test 05/16/25 17:07 White Blood Count 10.4 10^3/uL (4.4-10.8) Departure 1 Departure Time of Disposition: 18:41 (Patient with a worsening lower extremity weakness and altered mental status with intermittent neurologic symptoms. We will admit patient for further workup and expert consultation) Impression: Primary Impression: Lower extremity weakness Additional Impression: Uncontrolled diabetes mellitus Disposition: 09 ADMITTED INPATIENT Admit to: Tele Condition: Guarded Critical Care Note Critical Care Time?: Yes Critical care comment: Concern for TIA Authorized and Performed by: Caprice Brandt MD Total critical care time: Approximately 39 minutes Due to a high probability of clinically significant, life threatening deterioration, the patient required my highest level of preparedness to intervene emergently and I personally spent this critical care time directly and personally managing the patient. This critical care time included obtaining a history; examining the patient; pulse oximetry; ordering and review of studies; arranging urgent treatment with development of a management plan; evaluation of patient's response to treatment; frequent reassessment; and, discussions with other providers. This critical care time was performed to assess and manage the high probability of imminent, life-threatening deterioration that could result in multi-organ failure. It was exclusive of separately billable procedures and treating other patients and teaching time. Please see my other sections and the rest of the note for further information on patient assessment and treatment. Stability Stability form required: No Heart Score Heart Score: Heart Score Response (Comments) Value History N/A 0 EKG N/A 0 Age N/A 0 Risk Factors N/A 0 Troponin N/A 0 Total 0 I personally scribed for CAPRICE BRANDT MD ([email or web address]) on 05/16/25 at 17:49. Electronically submitted by Jeromy Galloway ([email or web address]). CAPRICE BRANDT MD May 16, 2025 17:49
--- NOTE | 2025-05-16 18:36 | DVH ---
EXAM: CT HEAD WITHOUT CONTRAST INDICATION: ams TECHNIQUE: CT images of the head were obtained without administration of IV contrast. CT scans at this facility use dose modulation, iterative reconstruction, and/or weight based dosing when appropriate to reduce radiation dose to as low as reasonably achievable. COMPARISON: MRI BRAIN HEAD WO CONTRAST on DOS: 04/24/25 FINDINGS: PARENCHYMA: No acute hemorrhage. There is no mass effect, midline shift, or herniation. There is preservation of the moctezuma white differentiation. VENTRICLES: No hydrocephalus. EXTRA-AXIAL SPACES: No extra-axial fluid collections. OTHER: The bony structures are intact. Visualized portions of the paranasal sinuses and mastoid air cells are clear. IMPRESSION: 1. No CT evidence of an acute intracranial abnormality.
--- NOTE | 2025-05-16 18:36 | DVH ---
CHEST RADIOGRAPH Indication: ams Technique: Single frontal view of the chest was obtained Comparison: None FINDINGS: Lines and Tubes: None Lungs: No focal consolidation. Pleura: No effusion. No pneumothorax. Cardiomediastinal contours: Unremarkable Bones: No acute osseous abnormality. IMPRESSION: 1. No acute cardiopulmonary disease.
[2025-05-16 21:30] VITALS: PULSE 91; RESP 18; O2SAT 98
[2025-05-16] MEDS: ONDANSETRON HCL 4 MG/2 ML VIAL IV ONE (21:37)
[2025-05-16] MEDS: MORPHINE SULFATE 4 MG/ML SYR/VIAL IV ONE (21:38)
[2025-05-16] MEDS ORDERED: CYCLOBENZAPRINE HCL 10 MG TAB PO PRN (23:45)
[2025-05-16] MEDS ORDERED: DEXTROSE (50%) 50ML SYRG IV PRN (23:45)
[2025-05-16] MEDS ORDERED: KETOROLAC TROMETH 30 MG/ML 1ML VIAL IV PRN (23:45)
[2025-05-16] MEDS ORDERED: ONDANSETRON HCL 4 MG/2 ML VIAL IV PRN (23:45)
[2025-05-16] MEDS ORDERED: ACETAMINOPHEN 325 MG TAB PO PRN (23:45)
[2025-05-16] MEDS ORDERED: HYDROcodone-ACET 7.5/325MG TAB PO PRN (23:45)
[2025-05-17] VITALS (9 sets, daily range): BP systolic 101–135; BP diastolic 46–82; PULSE 68–79; RESP 16–18; TEMP 97.6–97.8; O2SAT 91–96
[2025-05-17] MEDS: GABAPENTIN 100 MG CAP PO ONE (00:01)
[2025-05-17] MEDS: ACCU-CHEK COMFORT CURVE STRIP VI SCH ×2 (00:07→12:00)
[2025-05-17] MEDS: InsuLIN REG 1unit/0.01ml Soln (100units/ml) SC SCH ×2 (00:21→12:00)
--- NOTE | 2025-05-17 04:11 | DVHHP2 ---
History of Present Illness Reason for Visit: Left lower extremity pain History of Present Illness 69-year-old female presents for evaluation of left lower extremity pain. Patient reports a three-week history of left lower extremity pain. She states it starts in her left hip and radiates down her leg. Denies lower extremity n umbness. Denies back pain. Denies any recent trauma Past Medical History Diabetes mellitus, nephropathy Past Surgical History Denies Family History Noncontributory Smoke: No ALCOHOL: none Drugs: None Lives: with Family Review of Systems Review of Systems Review of systems are currently negative otherwise addressed in HPI. Allergies: Coded Allergies: NO KNOWN ALLERGIES (Unverified , 04/14/24) Medications Current Medications Medications Dose Ordered Sig/Orin Route Start Time Stop Time Status Last Admin Dose Admin Gabapentin 200 mg BID PO 05/17/25 10:00 Acetaminophen/ Hydrocodone Bitart 1 tab Q6HP PRN PO 05/16/25 23:45 Ketorolac Tromethamine 15 mg Q6HPRN PRN IV 05/16/25 23:45 05/21/25 23:44 Cyclobenzaprine HCl 5 mg Q8HPRN PRN PO 05/16/25 23:45 Diagnostic Test (Pha) 1 strip Q6HR 05/17/25 00:00 05/17/25 00:07 1 STRIP Insulin Human Regular Q6HR SC 05/17/25 00:00 05/17/25 00:21 10 UNITS Dextrose 50 ml UD PRN IV 05/16/25 23:45 Ondansetron HCl 4 mg Q4HP PRN IV 05/16/25 23:45 Enoxaparin Sodium 40 mg DAILY SC 05/17/25 10:00 Acetaminophen 650 mg Q6HP PRN PO 05/16/25 23:45 Exam Vital Signs Vital Signs Date Time Temp Pulse Resp B/P (MAP) Pulse Ox O2 Delivery O2 Flow Rate FiO2 05/17/25 02:30 97.6 79 17 128/82 (97) 95 97.6 05/16/25 21:30 Room Air* 0 21 Exam Gen: 69-year-old female in mild distress Skin: Warm, dry, normal color and texture, no rash. HEENT: Normocephalic atraumatic, mucous membranes moist and pink. Neck: Cervical and supraclavicular nodes normal without enlargement, trachea is midline, thyroid gland is normal without masses. Pulmonary: Clear to auscultation and percussion bilaterally. Cardiac: Regular rate and rhythm. No murmur Abdomen: Soft, nontender, nondistended, bowel sounds present all 4 quadrants, no guarding, no rigidity, no organomegaly. Extremities: No cyanosis, clubbing, no edema Neuro: Cranial nerves II through XII grossly intact, normal affect and speech, no focal motor deficits. Labs/Xrays ORDERING PHYSICIAN: CAPRICE BOWEN MD PROCEDURE(s): CXRP - CHEST PORTABLE REASON: [facility] ORDER NUMBER(s): [id number], ACCESSION NUMBER(s): [id number] CHEST RADIOGRAPH Indication: ams Technique: Single frontal view of the chest was obtained Comparison: None FINDINGS: Lines and Tubes: None Lungs: No focal consolidation. Pleura: No effusion. No pneumothorax. Cardiomediastinal contours: Unremarkable Bones: No acute osseous abnormality. IMPRESSION: 1. No acute cardiopulmonary disease. RING PHYSICIAN: CAPRICE BOWEN MD PROCEDURE(s): HWOCT - HEAD WITHOUT CONTRAST REASON: [facility] ORDER NUMBER(s): [id number], ACCESSION NUMBER(s): [id number] EXAM: CT HEAD WITHOUT CONTRAST INDICATION: [facility] TECHNIQUE: CT images of the head were obtained without administration of IV contrast. CT scans at this facility use dose modulation, iterative reconstruction, and/or weight based dosing when appropriate to reduce radiation dose to as low as reasonably achievable. COMPARISON: MRI BRAIN HEAD WO CONTRAST on DOS: 04/24/25 FINDINGS: PARENCHYMA: No acute hemorrhage. There is no mass effect, midline shift, or herniation. There is preservation of the moctezuma white differentiation. VENTRICLES: No hydrocephalus. EXTRA-AXIAL SPACES: No extra-axial fluid collections. OTHER: The bony structures are intact. Visualized portions of the paranasal sinuses and mastoid air cells are clear. IMPRESSION: 1. No CT evidence of an acute intracranial abnormality. Labs Test 05/16/25 17:07 Range/Units White Blood Count 10.4 4.4-10.8 10^3/uL Red Blood Count 5.08 4.0-5.20 10^6/uL Hemoglobin 14.4 12.2-16.2 g/dL Hematocrit 44.1 36.0-46.0 % Mean Corpuscular Volume 86.8 80.0-100.0 fL Mean Corpuscular Hemoglobin 28.3 28.0-32.0 pg Mean Corpuscular Hemoglobin Concent 32.7 32.0-36.0 g/dL Red Cell Distribution Width 14.2 11.8-14.3 % Platelet Count 200 140-450 10^3/uL Mean Platelet Volume 11.6 H 6.9-10.8 fL Neutrophils (%) (Auto) 66.8 37.0-80.0 % Lymphocytes (%) (Auto) 24.6 10.0-50.0 % Monocytes (%) (Auto) 6.5 0.0-12.0 % Eosinophils (%) (Auto) 1.5 0.0-7.0 % Basophils (%) (Auto) 0.6 0.0-2.0 % Neutrophils # (Auto) 6.9 1.6-8.6 10 ^3/uL Lymphocytes # (Auto) 2.6 0.4-5.4 10 ^3/uL Monocytes # (Auto) 0.7 0-1.3 10 ^3/uL Eosinophils # (Auto) 0.2 0-0.8 10 ^3/uL Basophils # (Auto) 0.1 0-0.2 10 ^3/uL Nucleated Red Blood Cells 0.1 % Sodium Level 138 136-145 mmol/L Potassium Level 4.4 3.5-5.1 mmol/L Chloride Level 101 98-107 mmol/L Carbon Dioxide Level 25 20-31 mmol/L Anion Gap 12 5-15 Blood Urea Nitrogen 11 9-23 mg/dL Creatinine 1.19 H 0.550-1.02 mg/dL Glomerular Filtration Rate Calc 50 >90 mL/min BUN/Creatinine Ratio 9.2 L 10.0-20.0 Serum Glucose 359 H 74-106 mg/dL Calcium Level 10.0 8.7-10.4 mg/dL Troponin I High Sensitivity 4 </=34 ng/L SEPSIS Sepsis Screen Date sepsis recognized/suspect: May 16, 2025 Time Sepsis recognized/suspect: 1520 Recent Procedure: No On Antibiotic Therapy: No Respiratory Rate >20: No Heart Rate >90: No Temp<36 C (96.8 F) or >38.3 C: No SBP <90 or MAP <65 mmHG: No New Acute Mental Status Change: No Is the patient on CPAP, BIPAP,: No Physician Orders Gabapentin Capsule (Neurontin Capsule) (05/17/25 10:00) Hydrocodone-Acet 7.5/325mg Tab (Howe 7. (05/16/25 23:45) Ketorolac Injection (Toradol Injection) (05/16/25 23:45) Pt Request For Service (05/16/25 23:38) Cyclobenzaprine Tablet (Flexeril Tablet) (05/16/25 23:45) Glucose Blood (Accu-Chek Comfort Curve T (05/17/25 00:00) Insulin R (Human) (Insulin R) (05/17/25 00:00) Dextrose 50% Syringe (05/16/25 23:45) Ondansetron Hcl (Zofran) (05/16/25 23:45) Enoxaparin Sodium (Lovenox) (05/17/25 10:00) Condition: Stable (05/16/25 23:38) Acetaminophen Tablet (Tylenol Tablet) (05/16/25 23:45) Bedrest With Bathroom Privileg (05/16/25 23:38) Admit (05/17/25 00:14) Vital Signs Date Time Temp Pulse Resp B/P (MAP) Pulse Ox O2 Delivery O2 Flow Rate FiO2 05/17/25 02:30 97.6 79 17 128/82 (97) 95 97.6 05/17/25 00:15 97.9 88 16 137/75 (95) 97 97.9 05/16/25 21:56 86 16 116/80 05/16/25 21:38 91 18 120/78 05/16/25 21:30 91 18 98 Room Air* 0 21 05/16/25 21:26 98.3 88 18 120/78 (92) 98 98.3 Laboratory Tests Test 05/16/25 17:07 White Blood Count 10.4 10^3/uL (4.4-10.8) Medications Medications Dose Ordered Sig/Orin Route Start Time Stop Time Status Last Admin Dose Admin Diagnostic Test (Pha) 1 strip Q6HR 05/17/25 00:00 05/17/25 00:07 1 STRIP Gabapentin 200 mg ONCE ONCE PO 05/16/25 23:45 05/16/25 23:46 DC 05/17/25 00:01 200 MG Insulin Human Regular Q6HR SC 05/17/25 00:00 05/17/25 00:21 10 UNITS Morphine Sulfate 4 mg ONCE ONCE IV 05/16/25 17:45 05/16/25 17:53 DC 05/16/25 21:38 4 MG Ondansetron HCl 4 mg ONCE ONCE IV 05/16/25 17:45 05/16/25 17:53 DC 05/16/25 21:37 4 MG Assessment/Plan Assessment/Plan Assessment Uncontrolled diabetes mellitus Chronic pain syndrome Plan Admit the patient to [facility] to the hospitalist Physical therapy eval Pain management Resume home medications Continue treatment per orders. Plan discussed with: Patient My Orders Orders - TAYLOR CANO Procedure Category Date Status Time Gabapentin Capsule PHA 05/17/25 In Process (Neurontin Capsule) 10:00 Hydrocodone-Acet PHA 05/16/25 In Process 7.5/325mg Tab (Howe 23:45 Ketorolac Injection PHA 05/16/25 In Process (Toradol Injection) 23:45 Pt Request For Service PT 05/16/25 Logged 23:38 Cyclobenzaprine PHA 05/16/25 In Process Tablet (Flexeril 23:45 Glucose Blood PHA 05/17/25 In Process (Accu-Chek Comfort 00:00 Insulin R (Human) PHA 05/17/25 In Process (Insulin R) 00:00 Dextrose 50% Syringe PHA 05/16/25 In Process 23:45 Ondansetron Hcl PHA 05/16/25 In Process (Zofran) 23:45 Enoxaparin Sodium PHA 05/17/25 In Process (Lovenox) 10:00 Condition: Stable [facility] 05/16/25 In Process 23:38 Acetaminophen Tablet PHA 05/16/25 In Process (Tylenol Tablet) 23:45 Bedrest With Bathroom [facility] 05/16/25 In Process Privileg 23:38 Admit ADMIT 05/17/25 Transmitted 00:14 Date of Service: May 16, 2025 Billing Provider: TAYLOR CANO Common Visit Codes: [id number] INP/OBS CARE (MOD) TAYLOR CANO May 17, 2025 04:11
[2025-05-17] MEDS: HYDROcodone-ACET 7.5/325MG TAB PO PRN (04:41)
[2025-05-17] MEDS ORDERED: INSU100I2 SC (04:45)
[2025-05-17] MEDS ORDERED: ATOR20TA50 PO (04:45)
[2025-05-17] MEDS ORDERED: INSLANTI SC (04:45)
[2025-05-17] MEDS ORDERED: LISI20TA56 PO (04:45)
[2025-05-17] MEDS: InsuLIN REG 1unit/0.01ml Soln (100units/ml) ONE (05:27)
[2025-05-17] MEDS: HYDROcodone-ACET 5/325MG TAB ONE (07:43)
[2025-05-17] MEDS ORDERED: ENOXAPARIN SOD 40 MG/0.4 ML SYRINGE SC SCH (10:00)
[2025-05-17] MEDS ORDERED: CYCLOBENZAPRINE HCL 10 MG TAB PO PRN (10:00)
[2025-05-17] MEDS ORDERED: GABAPENTIN 100 MG CAP PO SCH (10:00)
[2025-05-17] MEDS ORDERED: KETOROLAC TROMETH 30 MG/ML 1ML VIAL IV PRN (10:00)
[2025-05-17] MEDS ORDERED: ONDANSETRON HCL 4 MG/2 ML VIAL IV PRN (10:00)
[2025-05-17] MEDS ORDERED: DEXTROSE (50%) 50ML SYRG IV PRN (10:00)
[2025-05-17] MEDS ORDERED: ACETAMINOPHEN 325 MG TAB PO PRN (10:00)
[2025-05-17] MEDS: GABAPENTIN 100 MG CAP PO SCH (10:09)
[2025-05-17] MEDS: ENOXAPARIN SOD 40 MG/0.4 ML SYRINGE SC SCH (10:10)
[2025-05-18 01:45] VITALS: BP 147/76; PULSE 75; RESP 16; TEMP 98.5; O2SAT 96
[2025-05-18 05:00] VITALS: BP 117/73; PULSE 73; RESP 18; TEMP 98; O2SAT 96
[2025-05-18 09:00] VITALS: BP 127/74; PULSE 77; RESP 18; TEMP 97.6; O2SAT 95
[2025-05-18 13:00] VITALS: BP 138/74; RESP 18; TEMP 98.1; O2SAT 91
[2025-05-18] MEDS ORDERED: NALO4SPR2 (15:02)
[2025-05-18] MEDS ORDERED: HYDR-4902 PO (15:02)
[2025-05-18] MEDS ORDERED: GAB100C PO (15:07)
--- NOTE | 2025-05-18 15:09 | DVHDS2 ---
Discharge Summary Date of Admission May 17, 2025 at 00:14 Date of Discharge: May 18, 2025 Labs/Diagnostic Data: Laboratory Results Test 05/18/25 11:16 05/16/25 17:07 POC Glucose 313 mg/dl (70-106) White Blood Count 10.4 10^3/uL (4.4-10.8) Red Blood Count 5.08 10^6/uL (4.0-5.20) Hemoglobin 14.4 g/dL (12.2-16.2) Hematocrit 44.1 % (36.0-46.0) Mean Corpuscular Volume 86.8 fL (80.0-100.0) Mean Corpuscular Hemoglobin 28.3 pg (28.0-32.0) Mean Corpuscular Hemoglobin Concent 32.7 g/dL (32.0-36.0) Red Cell Distribution Width 14.2 % (11.8-14.3) Platelet Count 200 10^3/uL (140-450) Mean Platelet Volume 11.6 fL (6.9-10.8) Neutrophils (%) (Auto) 66.8 % (37.0-80.0) Lymphocytes (%) (Auto) 24.6 % (10.0-50.0) Monocytes (%) (Auto) 6.5 % (0.0-12.0) Eosinophils (%) (Auto) 1.5 % (0.0-7.0) Basophils (%) (Auto) 0.6 % (0.0-2.0) Neutrophils # (Auto) 6.9 10 ^3/uL (1.6-8.6) Lymphocytes # (Auto) 2.6 10 ^3/uL (0.4-5.4) Monocytes # (Auto) 0.7 10 ^3/uL (0-1.3) Eosinophils # (Auto) 0.2 10 ^3/uL (0-0.8) Basophils # (Auto) 0.1 10 ^3/uL (0-0.2) Nucleated Red Blood Cells 0.1 % Sodium Level 138 mmol/L (136-145) Potassium Level 4.4 mmol/L (3.5-5.1) Chloride Level 101 mmol/L (98-107) Carbon Dioxide Level 25 mmol/L (20-31) Anion Gap 12 (5-15) Blood Urea Nitrogen 11 mg/dL (9-23) Creatinine 1.19 mg/dL (0.550-1.02) Glomerular Filtration Rate Calc 50 mL/min (>90) BUN/Creatinine Ratio 9.2 (10.0-20.0) Serum Glucose 359 mg/dL (74-106) Calcium Level 10.0 mg/dL (8.7-10.4) Troponin I High Sensitivity 4 ng/L (</=34) Other Laboratory Tests 05/16/25 17:07 Brief Hx & Hospital Course: 69-year-old female who has a known history of diabetes mellitus type 2, hypertension, peripheral neuropathy who in his has been with the hospital with a left lower extremity pain found to have left lower extremity sciatica pain. Patient was managed with the pain medications. Patient is requesting to go home. Patient stated that her neurology sees Dr. Oconnell and she can follow up as an outpatient. Patient is being discharged under stable condition. Patient will be given gabapentin and [place] as prescribed. Condition at Discharge: Stable Final Diagnosis/Problems List 1. Left lower extremity pain likely sciatica 2. Diabetes mellitus type 2 3. Hypertension 4. peripheral neuropathy Discharge Disposition: Home SNF Discharge Will this Physician continue t: No Discharge Instruct/Medications Diet: Cardiac 2g Na,low cholest Diet comment: 1800 ADA diet Activity: See Comment Activity comment: No driving, no signing of legal documents, no planning on machinery while on narcotics Follow Up/Referral: Please follow up with the PCP in one week Follow up with Dr. Oconnell neurologist in one week Medications: [place], Narcan as prescribed Gabapentin as prescribed Scheduled Atorvastatin Calcium (Atorvastatin Calcium), 1 TAB PO DAILY, (Reported) Gabapentin (Gabapentin), 200 MG PO BID Insulin Glargine (Lantus), 100 UNIT SC DAILY, (Reported) Insulin Lispro (Human) (Humalog), 100 UNIT SC DAILY, (Reported) Lisinopril (Lisinopril), 1 TAB PO DAILY, (Reported) Naloxone HCl (Narcan), 4 MG NA VENDING MECHANIC Prednisone (Prednisone), 40 MG PO DAILY Scheduled PRN Hydrocodone-Acetaminophen (Hydrocodone Bitartrate/AC 5-325 mg), 1 TAB PO Q8HP PRN Discharge Statement: "Patient was advised to return to the ER or call 911 if any headaches, dizziness, shortness of breath, chest pain, abdominal pain, bleeding, fevers, or worsening of medical condition. Patient was counseled about treatment plan, medications, possible side effects, patientverbalized understanding. All questions were answered to the best of my ability. This discharge took greater then 30 minutes in planning, reviewing documentation, counseling the patient, and discussing with other team members." ASSESSMENT ASSESSMENT Assessment 1. Left lower extremity pain likely sciatica 2. Diabetes mellitus type 2 3. Hypertension 4. peripheral neuropathy Date of Service: May 18, 2025 Billing Provider: MARIE MICHELLE MD Common Visit Codes: [id number]/[id number] DISCH DAY >30min MARIE MICHELLE MD May 18, 2025 15:09
[2025-05-18 17:02] VITALS: BP 113/58; PULSE 85; RESP 18; TEMP 96.6; O2SAT 94
== END 2025-05-18 20:55 | disposition home or self-care (01) | DRG 552 ==
LOC: ER 15:17 → OVERFLOW 05-17 00:14 → ER 05-17 00:15 → EAST 05-17 00:15
PROVIDERS: ADMIT Internal Medicine; ATTEND Internal Medicine
DX: M54.32 Sciatica, left side (principal); E11.21 Type 2 diabetes mellitus with diabetic nephropathy; I10 Essential (primary) hypertension; E11.65 Type 2 diabetes mellitus with hyperglycemia; G89.4 Chronic pain syndrome; E11.42 Type 2 diabetes mellitus with diabetic polyneuropathy; Z79.4 Long term (current) use of insulin
CPT/HCPCS: 36415; 70450; 71045; 80048; 82962; 84484; 85025; 96374; 96375; 97110; 97116; 97163; 99291; G0378; J1815; J2405